=== PATIENT | female | born 1995 | race Caucasian/White ===

== ENCOUNTER 2025-09-15 19:39 | Emergency (ER) | payer BC, SELFPAY ==
[2025-09-15 19:42] VITALS: BP 123/74
[2025-09-15 19:54] LABS: Hematocrit 35.0 % (37.0-47.0); Hemoglobin 11.9 g/dL (12.0-16.0); Mean Corp Hgb Conc. 34.0 g/dL (33.0-37.0); Mean Corpuscular Volume 93.6 fL (81.0-99.0); Nucleated Red Blood Cells % 0 %; Platelet Count 261 10^3/uL (130-400); Red Cell Dist. Width 12.1 % (11.5-14.5)
[2025-09-15 20:27] LABS: ALT (SGPT) 15 U/L (0-35); AST (SGOT) 21 U/L (14-36); Albumin 4.6 g/dl (3.5-5.0); Alkaline Phosphatase 51 U/L (38-126); Blood Urea Nitrogen 14 mg/dl (7-17); Calcium 9.4 mg/dl (8.4-10.2); Carbon Dioxide 25 mmol/L (22-30); Chloride 106 mmol/L (98-107); Glucose 95 mg/dl (70-99); Potassium 3.9 mmol/L (3.5-5.1); Sodium 138 mmol/L (135-145); Total Protein 7.6 g/dl (6.3-8.2); eGFR > 60.00
[2025-09-15 20:30] LABS: Urine Character Clear (Clear)
[2025-09-15 20:33] LABS: HCG, Serum Qualitative Screen Positive
[2025-09-15 22:09] LABS: Beta HCG Quantitative 2554.50 mIU/ml
--- NOTE | 2025-09-15 22:16 | ED.GENMED ---
History of Present Illness
General
Chief Complaint: Vaginal Bleeding
Source: patient and family
Exam Limitations: none
Time Seen by Provider: 09/15/25 22:01
Nursing documentation reviewed up to this point in time: agreed with
History of Present Illness
History of Present Illness:
30-year-old female with no chronic medical issues who is A1, currently approximately 5 weeks by dates (last menstrual period 08/15/2025) who presents to the emergency department for evaluation of abdominal pain and vaginal bleeding.
Patient reports that she took a test last week which was positive. She says that today she started having some lower abdominal pains and some vaginal bleeding�she describes spotting of dark brown blood but no bright red blood and no clots
or tissue passing. She came to the ER to be evaluated. Her normal IMPLEMENTATION COORDINATOR is through [facility] in [place] but she has not yet seen anyone for this . Her prior in May unfortunately resulted in a miscarriage at 8 weeks.
Review of Systems
Review of Systems
All Other Systems: ROS reviewed and negative except as documented in HPI and ROS
Constitutional: Denies fever
Respiratory: Denies trouble breathing
Cardiac: Denies chest pain
ABD/GI: Reports abdominal pain; Denies nausea or vomiting
: Reports bleeding; Denies flank pain
Musculoskeletal: Denies neck pain or back pain
Neurological: Denies headache
Phy Exam
Physical Exam
Physical Exam:
General: Awake, alert, oriented x3; anxious but no acute distress
Head: Normocephalic, atraumatic
Eyes: Conjunctiva normal
Throat: Airway intact, handling secretions
Neck: Trachea midline, supple without meningismus
Lungs: Breathing comfortably with no distress, no tachypnea or hypoxia
Heart: Regular rate
Abd: Soft, non distended, mild tenderness in the lower abdomen but no peritoneal signs
Neuro: Grossly intact
Skin: Warm and dry
Extremities: Warm and well-perfused
Scores
Heart Failure Risk
Heart Failure Risk Score: Not Applicable
Heart Score for Chest Pain Patients
STEMI patient?: Not applicable
Withdrawal Assessment of Alcohol
Withdrawal Assessment Completed?: Not applicable
Course
Orders/Labs/Results
Orders:
Orders
09/15/25 19:45
Test Result ONCE
US W Transvaginal Urgent
Reason For Exam: 5 weeks , bleeding
09/15/25 19:49
Beta HCG Quantitative Urgent
Comment: ADDON
Beta Hcg Serum Qualitative Screen [HCG, Serum Qualitative Screen] Urgent
Complete Blood Count/With Diff Urgent
Comprehensive Metabolic Panel Urgent
09/15/25 20:23
Urinalysis Reflex To Culture Urgent
Date Specimen was Collected: 09/15/25
Time Specimen was Collected: 20:20
09/15/25 21:39
Add On- LAB Urgent
Tests Added?: hcg quantitative
09/15/25 22:17
IMPLEMENTATION COORDINATOR CONSULT Urgent
Consulting Provider: Iris Holt
Was physician already notified: Yes
09/15/25 22:20
0.9% Sodium Chloride 500 ml [Nss] 500 ml IV BOLUS
09/15/25 22:46
Type+Screen Urgent
BBK Wristband Number:
09/16/25 00:10
Methotrexate Sodium/Pf [Methotrexate] 77.5 mg Intramuscular Injection 0 ml IM ONCE
Abnormal Lab Results
09/15/25
19:49
RBC 3.74 L 10^6/uL
(4.20-5.40)
Hgb 11.9 L g/dL
(12.0-16.0)
Hct 35.0 L %
(37.0-47.0)
MCH 31.8 H pg
(27.0-31.0)
09/15/25 19:49
09/15/25 19:49
Vital Signs
Initial and Last Documented VS:
Initial Vital Signs
Temp Pulse Resp BP Pulse Ox
36.6 C 72 18 123/74 100
09/15/25 19:42 09/15/25 19:42 09/15/25 19:42 09/15/25 19:42 09/15/25 19:42
Last Documented Vital Signs
Temp Pulse Resp BP Pulse Ox
36.6 C 63 16 109/70 99
09/16/25 00:32 09/16/25 00:32 09/16/25 00:32 09/16/25 00:32 09/16/25 00:32
MDM/Problems Addressed
Differential Diagnosis Includes:
Threatened AB, ectopic , implantation bleeding
MDM/Problems Addressed:
30-year-old female currently approximately 5 weeks by dates presents to the ER for abdominal pain and vaginal bleeding. Vitals and exam as above. She had lab work sent in triage including a CBC which showed marginal anemia and a CMP which
showed no clinically significant abnormalities. Her hCG quant is 2554. Added type and screen. She was sent for pelvic ultrasound which is suspicious for ectopic . Discussed case with IMPLEMENTATION COORDINATOR for consultation. Monitor closely here
pending consult.
Patient seen in consultation with IMPLEMENTATION COORDINATOR here. They recommended treating with methotrexate here can be discharged to follow-up closely with IMPLEMENTATION COORDINATOR as an outpatient. Patient comfortable with this plan. All questions answered.
*Radiology
Radiology exam reviewed: radiology read reviewed
*Pulse Oximetry
SaO2: 100
Patient hypoxic: no (100%)
*Critical Care Note
Total Time (30-74mins, 75-104mins- exclusive of procedures): Not Applicable
Data Reviewed
Source: patient and family
Patient Management
Discussion with other providers: Transportation Planner (Discussed with IMPLEMENTATION COORDINATOR) and Radiologist (Discussed with radiologist)
ED Attending Note
-
Portions of this chart may have been created with voice recognition software.� Occasional wrong word or��sound alike� substitutions may have occurred due to the inherent limitations of voice recognition software.
Discharge Plan
Departure
Patient Disposition: Home (Routine Discharge)
Date of Disposition: 09/16/25
Time of Disposition: 00:56
Patient with high blood pressure during this ER visit?: No
Discharge Problem:
Ectopic
Instructions: Ectopic (DC)
Prescriptions:
No Action
No Current Medications
0
Referrals:
Lacey Mock [Other, Gynecology] - Call in 1-3 days for appt
Dee Pope PA [Family Provider]
Activity Restrictions/Additional Instructions:
You were seen in the ER in consultation with IMPLEMENTATION COORDINATOR�you are found to have an ectopic .
You were treated with a medicine called methotrexate�it is very important that you follow-up with your IMPLEMENTATION COORDINATOR after receiving this medication for follow-up blood work as discussed here in the ER today.
You are recommended to stop your vitamin. No sexual activity, no sun exposure, no NSAIDs (ibuprofen, naproxen, etc) and no repeat for at least 3 months.
Thank you for visiting the Emergency Department at [facility].
1. Please schedule a follow up appointment as directed. Call first thing tomorrow morning to make an appointment.
2. If indicated, please take your medications as instructed and indicated on discharge paperwork.
3. If any of your symptoms do not improve, or persist, or become more severe within 6-12 hours, please return to the emergency department for further care.
4. Please return to the emergency department if you develop a headache, neck pain/stiffness, fever greater than 100.4F, chest pain, shortness of breath, persistent nausea, vomiting, slurred speech, difficulty walking, numbness/tingling, weakness,
signs of infection or any other symptoms that are worrisome to you.
Please call [phone] if you have any questions.
Interventions
Interventions:
*Risk Screen - Suicide Last Done: 09/15/25 19:44
*General Assessment Last Done: 09/15/25 19:44
*Neglect/Abuse Screening Last Done: 09/15/25 19:44
*ED COVID-19 Vaccine History Last Done: 09/15/25 19:44
*ED Influenza Vaccine History Last Done: 09/15/25 19:44
ED-Female Genitourinary Assessment Last Done: 09/15/25 23:23
Discharge Date and Time
Print Language: SWEDISH
[2025-09-15 22:30] VITALS: BP 116/82
[2025-09-15 22:39] VITALS: BMI 23.0
[2025-09-15] MEDS: NSS 500 IV (23:21)
--- NOTE | 2025-09-16 00:26 | CON.MD ---
Consultation - Medical
-
30 yo Ab 1 with LMP 08/15/25 with + preg test last week about 5+ weeks preg with+ spotting today and cramping. Came to ER for eval. Had miscarriage in May at 8 week. Her MANAGER AUTO in [facility] - [facility] Dr. Lacey Holt [phone]. Last seen
by that practice in late Aug 24, 2025 for f/u after miscarriage. PT is trying for preg and on PNV.
In ER HCG is 2554 - Us/ shows R sided ectopic with + yolk sac - no pole or HR. No IUP seen. CBC - lytes and LFTs normal
PMH - none
PSH - none
All = NKDA
Meds - PNV
SH - non smoker
FH - non contributory
POBH - AB 1 - miscarriage
PGYNH - no abnl pap or STD history
PE - 97.8 - 72 - 18 - 123/74
HEENT - wnl
Lungs clear
CV - RRR
Abd - soft - slight tenderness to palp - no rebound or guarding + BS
Pelvic - EG - wnl - vagina - scant brown d/c - cervix - normal
BME - uterus RV - no CMT
Gentle exam done
Ass- Highly suspicious for ectopic preg with HCG 2554 and no IUP seen + ectopic with poss yolk sac
Plan -
Disc poss obs - but not rec with high risk of ectopic
Disc surgery vs MTX - pt meets criteria for tx with MTX
Called pt MANAGER AUTO - Dr. Lacey Garcia at [facility] on speaker phone with pt. Disc tx with MTX and plan for f/u in the office for f/u HCG levels.
Disc need to stop PNV - no SA - no sun exposure - no NSAIDs - no repeat preg for at least 3 months
Pt will get MTX 50 mg/m2 before leaving ER - she will f/u with obstetrics gyn for day 4 and 7 for levels
Gave pt copy of BW and u/s report from this ER visit to give to MANAGER AUTO
Gave pt copy of algorithm for tx with MTX
Consultation
-
Date/Time Consultation Performed: 09/15/25 11pm
Requesting Provider: Lin
Performing Provider: Jonathon
Reason for Consultation: Ectopic
[2025-09-16 00:32] VITALS: BP 109/70
[2025-09-16] MEDS: METHOTREXATE 3.1 MG IM (01:25)
[2025-09-16 01:34] VITALS: BP 119/73
== END 2025-09-16 01:36 | disposition home or self-care (01) ==
LOC: EMR 19:39
PROVIDERS: Emergency Medicine; CONSULT PHYSICIAN Obstetrics & Gynecology Gynecology; EMERGENCY PHYSICIAN Emergency Medicine; FAMILY PHYSICIAN Nurse Practitioner Adult Health
DX: O00.101 Right tubal pregnancy without intrauterine pregnancy (principal); O99.011 Anemia complicating pregnancy, first trimester; O09.291 Supervision of pregnancy with other poor reproductive or obstetric history, first trimester; Z3A.01 Less than 8 weeks gestation of pregnancy
CPT/HCPCS: 99284; 96360; 96372; 76801; 76817; 80053; 81003; 84702; 84703; 85025; 86850; 86900; 86901; J9260

== ENCOUNTER 2025-10-05 21:20 | Day surgery (SDC) | payer BC, SELFPAY ==
[2025-10-05] VITALS (12 sets, daily range): BP systolic 100–122; BP diastolic 58–81; BMI 21.8
--- NOTE | 2025-10-05 17:14 | ED.GENMED ---
History of Present Illness
General
Chief Complaint: Problems
Source: patient, records and family
Exam Limitations: none
Time Seen by Provider: 10/05/25 17:00
History of Present Illness
History of Present Illness:
30yo female with no significant past medical history presenting with her and mother for evaluation of vaginal bleeding. Patient was seen in the ED on 09/15/2025 for vaginal bleeding at 5 weeks gestation. Ultrasound showed a 1.2 cm complex
cystic mass adjacent to the right ovary which appeared to contain a yolk sac and was very suspicious for a tubal ectopic . She was evaluated by OBGYN and received methotrexate. Since then, she has been following up with her POTATO INSPECTOR team at
[facility]. She primarily sees Dr. Dang Aguirre. They have been checking serial hCG levels as an outpatient. Quantitative HCG was 7600 on day 4 after methotrexate and 4900 on day 10 (09/22/25). HCG was 3600 on 09/26/25 and 3200 on 10/02/25.
She also had an ultrasound on 10/03 which showed complex right adnexal lesion with imaging characteristics that could represent a right adnexal ectopic in the correct clinical setting. The tentative plan was to have repeat blood work
tomorrow to determine further steps. She received Cytotec in the office on 09/27 and has been having brown vaginal bleeding since then. She started to notice bright red bleeding earlier today and has gone through 2 pads thus far today. She is
still having cramping but denies any worsening pain. She also noticed right scapular pain earlier today and had a near syncopal episode less than 2 hours ago which prompted her to come back to the ED for evaluation.
Phy Exam
General Physical Exam
General Presentation: well appearing and no apparent distress
General Skin: warm and dry
General Habitus: normal
General Mental: alert
ENT Exam
ENT Exam: normocephalic
Pulmonary Exam
Pulmonary Exam: no respiratory distress
Gastrointestinal Exam
Gastrointestinal Exam: soft, non distended and other (+Tenderness in RLQ. No rebound or guarding.)
Neurological Exam
Neurological Exam: alert
[place] Coma Scale
Eye Opening: Spontaneous
Verbal Response: Oriented
Motor Response: Obeys Commands
GCS Total Score: 15
Skin Exam
Skin Exam: normal color and warm/dry
Psychiatric Exam
Psychiatric Exam: normal mood/affect
Course
Orders/Labs/Results
Orders:
Orders
10/05/25 17:08
Type+Screen Urgent
Complete Blood Count/With Diff Urgent
Comprehensive Metabolic Panel Urgent
HCG, Beta Quantitative [Beta HCG Quantitative] Urgent
Is this a screen?: No
10/05/25 17:13
US W Transvaginal Stat
Reason For Exam: vaginal bleeding, cramping, recent ectopic
10/05/25 18:41
POTATO INSPECTOR CONSULT Urgent
Consulting Provider: Vee Stewart
Was physician already notified: Yes
10/05/25 19:30
Fentanyl Citrate/Pf [Sublimaze] 100 mcg .ROUTE .STK-MED ONE
Lidocaine HCl/Pf [Xylocaine-Mpf 1% Vial] 50 mg .ROUTE .STK-MED ONE
Propofol [Diprivan] 20 ml .ROUTE .STK-MED
Rocuronium [place] [Rocuronium] 50 mg .ROUTE .STK-MED ONE
10/05/25 19:31
Midazolam HCl [Versed] 2 mg .ROUTE .STK-MED ONE
10/05/25 19:32
Bupivacaine Mpf 0.25% [Sensorcaine-Mpf 0.25% Vial] 30 ml .ROUTE .STK-MED ONE
10/05/25 19:35
Famotidine [Pepcid] 20 mg .ROUTE .STK-MED ONE
10/05/25 19:36
Sugammadex Sodium [Bridion] 200 mg .ROUTE .STK-MED ONE
10/05/25 19:39
Carboxymethylcellulose [Refresh Celluvisc Gel] 6 drops .ROUTE .STK-MED ONE
10/05/25 20:31
Dexmedetomidine HCl [Precedex] 400 mcg .ROUTE .STK-MED ONE
10/05/25 20:35
Acetaminophen 1000MG/100Ml [Ofirmev] 1,000 mg in 100 ml .ROUTE .STK-MED
10/05/25 20:37
HYDROmorphone [Dilaudid] 1 mg .ROUTE .STK-MED ONE
10/05/25 20:53
OR Pathology Routine
Pre-Operative Diagnosis: ectopic
Operative Procedure: lap salpingectomy
Surgeon: daphney
Circulating Nurse: gonzalo
Specimen Type: right fallopian tube with ectopic
10/05/25 21:30
Fentanyl Citrate/Pf [Sublimaze] 25 mcg IV [id number] PRN
HYDROmorphone [Dilaudid] 0.25 mg IV PACU-Q5MPRN PRN
HYDROmorphone [Dilaudid] 0.5 mg IV PACU-Q5MPRN PRN
Normosol (Mult Electrolytes) [Normosol-R/Plasmalyte-A] 1,000 ml IV PER PROTOCOL
Ondansetron Injectable [Zofran] 4 mg IV PACU-ONCEPRN PRN
Prochlorperazine [Compazine] 5 mg IV PACU-ONCEPRN PRN
Notify MD As Directed
Notify physician if: for SDS patients with known or suspected sleep obstructive sleep apnea, monitor in the
PACU.
Notify MD for any apneic/desaturation episodes
O2 Therapy [RESP] Urgent
Titrate/Wean O2 to maintain O2 sat greater than (%): 92
Special Instructions: -Provide supplemental oxygen to achieve O2 sat of 92% or greater.
-After 15 min, may wean O2 and discontinue if patient is able to maintain O2 sat of 92%
or greater during recovery period.
If patient is a discharge home, without oxygen therapy, notify anestheiologist if
unable to maintain O2 SAT of 92% or greater on room air for MD clearance.
10/05/25 22:00
Acetaminophen [Tylenol] 650 mg PO SDS-Q4HPRN PRN
Ibuprofen [Motrin] 600 mg PO SDS-Q6HPRN PRN
Normosol (Mult Electrolytes) [Normosol-R/Plasmalyte-A] 1,000 ml IV SDS-ONCE
Ondansetron Injectable [Zofran] 4 mg IV SDS-ONCEPRN PRN
Oxycodone [Roxicodone] 5 mg PO SDS-Q4HPRN PRN
10/05/25 22:02
HYDROmorphone [Dilaudid] 0.25 mg .ROUTE .STK-MED ONE
10/05/25 22:17
HYDROmorphone [Dilaudid] 0.25 mg .ROUTE .STK-MED ONE
10/05/25 22:57
Oxycodone [Roxicodone] 5 mg .ROUTE .STK-MED ONE
Abnormal Lab Results
10/05/25
17:08
RBC 3.69 L 10^6/uL
(4.20-5.40)
Hgb 11.8 L g/dL
(12.0-16.0)
Hct 34.3 L %
(37.0-47.0)
MCH 32.0 H pg
(27.0-31.0)
Glucose 101 H mg/dl
(70-99)
Alkaline Phosphatase 36 L U/L
(38-126)
10/05/25 17:08
10/05/25 17:08
Vital Signs
Initial and Last Documented VS:
Initial Vital Signs
Temp Pulse Resp BP Pulse Ox
98.2 F 90 18 107/79 99
10/05/25 16:17 10/05/25 16:17 10/05/25 16:17 10/05/25 16:17 10/05/25 16:17
Last Documented Vital Signs
Temp Pulse Resp BP Pulse Ox
100.0 F 85 12 104/67 99
10/05/25 22:30 10/05/25 22:45 10/05/25 22:45 10/05/25 22:45 10/05/25 22:45
Information
Weeks gestation: Weeks:
Location: Location:
MDM/Problems Addressed
Differential Diagnosis Includes:
30yoF here after a near syncopal episode this afternoon. Also having vaginal bleeding. Treated with methotrexate 3 weeks ago for ectopic . Outpatient OB team has been monitoring HCG levels which are persistently elevated. She is
well-appearing and hemodynamically stable. No signs of peritonitis on abdominal exam. Differential diagnosis includes but is not limited to: Ectopic , ruptured fallopian tube
Initial ED plan: Check CBC, CMP, quantitative hCG, and pelvic ultrasound. Blood type checked during last ED visit and blood type is O+.
*Pulse Oximetry
SaO2: 98
Oxygen Mode of Delivery: Room air
Patient hypoxic: no
*Critical Care Note
Total Time (30-74mins, 75-104mins- exclusive of procedures): Not Applicable
Update Note
Update Note:
Quantitative hCG is 2600 which is increased from last ED visit. Ultrasound shows right adnexal ectopic with mild interval increase in size with small amount of hemorrhagic fluid adjacent to the adnexa. OBGYN consulted and patient
evaluated by Dr. Stewart. Patient taken to the OR for salpingectomy.
ED Attending Note
-
Portions of this chart may have been created with voice recognition software.� Occasional wrong word or��sound alike� substitutions may have occurred due to the inherent limitations of voice recognition software.
Discharge Plan
Departure
Patient Disposition: OR
Date of Disposition: 10/05/25
Time of Disposition: 19:09
Presentation/result/management discussed w/ accepting MD/DO: Dr. Stewart
Discharge Problem:
Ectopic
Interventions
Interventions:
*Risk Screen - Suicide Last Done: 10/05/25 16:17
*General Assessment Last Done: 10/05/25 16:17
*Neglect/Abuse Screening Last Done: 10/05/25 16:17
*ED- Fall Risk Assessment Last Done: 10/05/25 16:32
*ED COVID-19 Vaccine History Last Done: 10/05/25 16:32
*ED Influenza Vaccine History Last Done: 10/05/25 16:32
*Nursing Disposition Last Done: 10/05/25 19:44
ED-Female Genitourinary Assessment Last Done: 10/05/25 16:41
Discharge Date and Time
Discharge Date/Time: 10/05/25 19:45
[2025-10-05 17:22] LABS: Hematocrit 34.3 % (37.0-47.0); Hemoglobin 11.8 g/dL (12.0-16.0); Mean Corp Hgb Conc. 34.4 g/dL (33.0-37.0); Mean Corpuscular Volume 93.0 fL (81.0-99.0); Nucleated Red Blood Cells % 0 %; Platelet Count 289 10^3/uL (130-400); Red Cell Dist. Width 12.0 % (11.5-14.5)
[2025-10-05 17:41] LABS: ALT (SGPT) 16 U/L (0-35); AST (SGOT) 19 U/L (14-36); Albumin 4.4 g/dl (3.5-5.0); Alkaline Phosphatase 36 U/L (38-126); Blood Urea Nitrogen 11 mg/dl (7-17); Carbon Dioxide 25 mmol/L (22-30); Estimated Creatinine Clearance 98 ml/min; Potassium 3.8 mmol/L (3.5-5.1); Sodium 135 mmol/L (135-145); Total Protein 7.4 g/dl (6.3-8.2); eGFR > 60.00
[2025-10-05 17:51] LABS: Calcium 9.3 mg/dl (8.4-10.2); Chloride 105 mmol/L (98-107)
[2025-10-05 17:56] LABS: Beta HCG Quantitative 2645.30 mIU/ml
[2025-10-05 18:01] LABS: Glucose 101 mg/dl (70-99)
--- NOTE | 2025-10-05 19:38 | HPS.HSE ---
Family Physician
-
Family Physician: Dee Pope
Chief Complaint
-
right ectopic , pelvic pain
History of Present Illness
Daphney is a 30 yo presenting with known right ectopic treated with MTX x1 and cytotec at outside institution. Patient states she was diagnosed with an ectopic on 09/15 with an hCG of 2554 and no IUP and R adnexal mass. She
was given mtx at that time. Her day 4 hcg (09/19) was 7632, then day 7 was 4926. Her hCG began to remain stagnant at 3626 and 3275 on 09/26 and 10/02. She was treated with cytotec on 09/27. She has no significant PMH or PSurg Hx. Hx of 1 prior
miscarriage.
Medical History
Past Medical History
Past Medical History: Reports None
Past Surgical History: Reports None
Social History
Tobacco: Non-smoker
Alcohol: None
Drug: None
Personal:
Employment: Employed
Family History
Family History: Not pertinent
Allergies / Home Medications
Allergies reflects when Allergies were last updated in [employer].
Home Medications with original date entered in [employer]
Allergy/Medication List:
none
Review of Systems
-
Constitutional: Reports No Symptoms
EENT: Reports No Symptoms
Respiratory: Reports No Symptoms
Cardiac: Reports No Symptoms
Abdomen/GI: Reports No Symptoms
: Reports No Symptoms and Other (pelvic pain)
Musculoskeletal: Reports No Symptoms
Physical Exam
Vital Signs
Vital Signs
Temp Pulse Resp BP Pulse Ox
98.2 F 98 18 122/81 100
10/05/25 16:17 10/05/25 19:15 10/05/25 16:37 10/05/25 19:00 10/05/25 19:00
Physical Exam
General: Well Developed, Well Nourished and No Apparent Distress
Respiratory: Non Labored Respirations; No Accessory Resp Muscle Use
Cardiac: Regular Rhythm
GI: Soft, Non Distended and Tender
Genito-urinary: Deferred by me
Skin: Warm and Dry
Neuro: Awake and Alert
Laboratory Results
-
10/05/25 17:08
10/05/25 17:08
Laboratory Results
Total Bilirubin 0.7 mg/dl (0.2-1.3) 10/05/25 17:08
AST 19 U/L (14-36) 10/05/25 17:08
ALT 16 U/L (0-35) 10/05/25 17:08
Alkaline Phosphatase 36 U/L (38-126) L 10/05/25 17:08
Data Reviewed
-
Ultrasound: Report Reviewed by me and Discussed with Patient
Impression/Plan
-
IMPRESSION:
Daphney is a 30 yo F with right ectopic and free fluid in pelvis
PLAN:
Recommend surgical mgmt with dx laparoscopy and right salpingectomy.
Reviewed risks of bleeding, infection and injury to nearby structures.
Plan for d/c following surgery.
--- NOTE | 2025-10-05 21:28 | W.IMMPOSTOP ---
Surgical Immed Post Op Note
-
Primary Surgeon: MD Terry
Assisting Surgeon: N/A
Pre-op Diagnosis: right ectopic
Post-op Diagnosis: right ectopic , hemoperitoneum
Procedure Performed: diagnostic laparoscopy, right salpingectomy, and evacuation of hemoperitoneum
Anesthesia Type: general, ETT
Specimen / Cultures: right fallopian tube and ectopic
Estimated Blood Loss: 10cc
Complications: none
Operative Findings: normal uterus, b/l ovaries, l fallopian tube. right 4-5cm tubal ectopic . normal appearing bowel, liver and gallbladder.
[2025-10-05] MEDS: DILAUDID 0.25 MG IV ×2 (22:03→22:17)
[2025-10-05] MEDS: ROXICODONE 5 MG PO (22:57)
--- NOTE | 2025-10-05 23:24 | OR.RPT ---
Operative Report
Operative Report
Patient: Daphney Sheldon
: 1995

Date of surgery: 10/05/2025
Preoperative diagnosis:
1. Right ectopic
Postoperative diagnosis: Same as above
Procedure: Diagnostic laparoscopy, laparoscopic right salpingectomy, and evacuation of hemoperitoneum
Surgeon: Vee Stewart MD
EBL: 10 cc
Urine output: 200 cc
Findings:
Normal-appearing external female genitalia
Normal-appearing liver edge, gallbladder, bowel, and stomach edge on initial survey of abdomen during laparoscopy.
On laparoscopic evaluation of the pelvis, uterus, bilateral ovaries and left fallopian tube appear normal.
Approximately 250 cc of hemoperitoneum
Right fallopian tube with evidence of ectopic measuring approximately 5 cm.
Complications: None
Description of procedure: Patient was brought to the operating room where timeout was performed to confirm correct patient and correct procedure. General anesthesia was established. SCDs were placed bilaterally, and the patient was positioned on
the operating table in dorsal lithotomy position with legs put up in stirrups. All pressure points were padded and a Javi hugger was placed to maintain control of core body temperature. The patient was then prepped and draped in usual sterile
fashion. A bimanual exam was performed and the uterus was found to be small, mobile and anteverted. The adnexa was palpated bilaterally and there were no palpable adnexal masses. A Ruiz catheter was placed into the bladder.
Operative technique: Sponge stick was placed into the vagina. Gloves were changed and attention was then turned to the abdomen.
A 5 mm horizontal incision was made infraumbilical and a 5 mm trocar was introduced under direct visualization with the laparoscope within the trocar. When intra-abdominal placement had been confirmed, the trocar was removed, leaving sleeve in
place. The laparoscope was then placed through the trocar and pneumoperitoneum was established to a maximum of 15 mmHg. The patient was placed in Trendelenburg. The uterus, ovaries and left fallopian tube appeared normal. Right fallopian tube
was noted to be dilated with a 5 cm ectopic and subsequent hemoperitoneum which was evacuated using a suction distribution specialist.The liver edge and gallbladder appeared normal. Subsequently, 2 additional small incisions were made into 5 mm ports
were introduced under direct visualization.
Based on the extent of damage to the right fallopian tube, the decision was made to proceed with salpingectomy. The right fallopian tube was grasped at the fimbriated end using an atraumatic grasper and the LigaSure was used to coagulate and cut
the fallopian tube proximal to the ectopic. The fallopian tube was then coagulated and cut distal to the ectopic . The mesosalpinx was coagulated and cut using the LigaSure. The portion of fallopian tube containing the products of
conception was then placed in a 5 mm Endo Catch bag and removed and sent to pathology. The pelvis was thoroughly irrigated and good hemostasis was noted.
The trocars were then removed, pneumoperitoneum was evacuated and the skin was reapproximated using 4-0 Monocryl and Dermabond.
Attention was then turned to the perineum. The sponge stick was removed from the vagina. Ruiz catheter was removed atraumatically.
At the end of surgery, the sponge, instrument, and suture counts were noted to be correct x 2.
== END 2025-10-05 21:25 | disposition home or self-care (01) ==
LOC: SDS 21:20
PROVIDERS: ATTENDING PHYSICIAN Obstetrics & Gynecology; CONSULT PHYSICIAN Obstetrics & Gynecology; EMERGENCY PHYSICIAN Emergency Medicine; FAMILY PHYSICIAN Nurse Practitioner Adult Health
DX: O00.80 Other ectopic pregnancy without intrauterine pregnancy (principal); Z3A.00 Weeks of gestation of pregnancy not specified
CPT/HCPCS: 59151; 76801; 76817; 80053; 84702; 85025; 86850; 86900; 86901; 88305; 99285